=== PATIENT | female | born 1980 | race Caucasian/White ===

== ENCOUNTER 2017-09-12 08:54 | Emergency (ER) | payer OTHER ==
[~2017-09-12 08:54] MED LIST: TAB-TAB PO; Z.0.BCPILL PO
[2017-09-12 08:57] VITALS: BP 150/91; PULSE 89; RESP 16; TEMP 98.2; O2SAT 98
[2017-09-12 09:50] LABS: AUTOMATED NEUTROPHIL # 3.7 TH/MM3 (1.8-7.7); BASOPHIL % 0.5 % (0.0-2.0); EOSINOPHIL % 0.3 % (0.0-4.0); HEMATOCRIT 43.1 % (35.0-46.0); HEMOGLOBIN 14.7 GM/DL (11.6-15.3); LYMPH % 25.7 % (9.0-44.0); LYMPHOCYTE # 1.4 TH/MM3 (1.0-4.8); MEAN CORPUSCULAR HEMOGLOBIN 31.3 PG (27.0-34.0); MEAN PLATELET VOLUME 6.6 FL (7.0-11.0); MONO % 6.2 % (0.0-8.0); MONOCYTE # 0.3 TH/MM3 (0-0.9); NEUT % 67.3 % (16.0-70.0); PLATELET COUNT 329 TH/MM3 (150-450); RED BLOOD COUNT 4.68 MIL/MM3 (4.00-5.30); RED CELL DISTRIBUTION WIDTH 14.8 % (11.6-17.2); WHITE BLOOD COUNT 5.6 TH/MM3 (4.0-11.0)
[2017-09-12 09:51] LABS: BILIRUBIN, URINE NEG (NEG); BLOOD, URINE NEG (NEG); GLUCOSE,URINE NEG (NEG); KETONE, URINE NEG (NEG); NITRITE,URINE NEG (NEG); PH, URINE 7.5 (5.0-8.5); SQUAMOUS EPITHELIAL CELL URINE <1 /hpf (0-5); URINE COLOR LIGHT-YELLOW (YELLW/STRAW); URINE LEUKOCYTE ESTERASE NEG (NEG)
[2017-09-12] MEDS ORDERED: GABA400C5 PO (10:04)
[2017-09-12] MEDS ORDERED: ARIP1TAB15 PO (10:04)
[2017-09-12] MEDS ORDERED: LAMO200T PO (10:04)
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
[2017-09-12 10:13] LABS: BICARBONATE 28.1 MEQ/L (21.0-32.0); CALCIUM 9.2 MG/DL (8.5-10.1); CREATININE 0.95 MG/DL (0.50-1.00)
--- NOTE | 2017-09-12 10:52 | RADRPT ---
EXAM DATE/TIME: 09/12/2017 10:25 [facility] COMPARISON: No previous studies available for comparison. INDICATIONS : Dizziness, involuntary tremors RADIATION DOSE: 56.35 CTDIvol (mGy) MEDICAL HISTORY : Seizures. SURGICAL HISTORY : None. ENCOUNTER: Initial ACUITY: 2 weeks PAIN SCALE: 0/10 LOCATION: cranial TECHNIQUE: Multiple contiguous axial images were obtained of the head. Using automated exposure control and adj ustment of the mA and/or kV according to patient size, radiation dose was kept as low as reasonably a chievable to obtain optimal diagnostic quality images. DICOM format image data is available electro nically for review and comparison. FINDINGS: CEREBRUM: The ventricles are normal for age. No evidence of midline shift, mass lesion, hemorrhage or acute in farction. No extra-axial fluid collections are seen. POSTERIOR FOSSA: The cerebellum and brainstem are intact. The 4th ventricle is midline. The cerebellopontine angle i s unremarkable. EXTRACRANIAL: The visualized portion of the orbits is intact. SKULL: The calvaria is intact. No evidence of skull fracture. CONCLUSION: Normal examination. Mega Velazco MD on September 12, 2017 at 10:47 Board Certified Radiologist. This report was verified electronically.
--- NOTE | 2017-09-12 11:24 | PD ---
Physical Exam Time Seen by Provider: 11:21 Narrative Patient seen initially by Dr. Brown. See his note for history and physical. Data Data Last Documented VS Vital Signs Date Time Temp Pulse Resp B/P (MAP) Pulse Ox O2 Delivery O2 Flow Rate FiO2 09/12/17 08:57 98.2 89 16 150/91 (110) 98 Orders Orders Complete Blood Count With Diff (09/12/17 09:00) Basic Metabolic Panel (Bmp) (09/12/17 09:00) Urinalysis - C+S If Indicated (09/12/17 09:00) Ed Urine Pregnancytest Poc (09/12/17 09:00) Ct Brain W/O Iv Contrast(Rout) (09/12/17 ) Labs Laboratory Tests Test 09/12/17 09:12 09/12/17 09:15 Urine Color LIGHT-YELLOW Urine Turbidity CLEAR Urine pH 7.5 Urine Specific [place] 1.005 Urine Protein NEG mg/dL Urine Glucose (UA) NEG mg/dL Urine Ketones NEG mg/dL Urine Occult Blood NEG Urine Nitrite NEG Urine Bilirubin NEG Urine Urobilinogen LESS THAN 2.0 MG/DL Urine Leukocyte Esterase NEG Urine RBC LESS THAN 1 /hpf Urine WBC LESS THAN 1 /hpf Urine Squamous Epithelial Cells <1 /hpf Microscopic Urinalysis Comment CULT NOT INDICATED White Blood Count 5.6 TH/MM3 Red Blood Count 4.68 MIL/MM3 Hemoglobin 14.7 GM/DL Hematocrit 43.1 % Mean Corpuscular Volume 92.0 FL Mean Corpuscular Hemoglobin 31.3 PG Mean Corpuscular Hemoglobin Concent 34.0 % Red Cell Distribution Width 14.8 % Platelet Count 329 TH/MM3 Mean Platelet Volume 6.6 FL Neutrophils (%) (Auto) 67.3 % Lymphocytes (%) (Auto) 25.7 % Monocytes (%) (Auto) 6.2 % Eosinophils (%) (Auto) 0.3 % Basophils (%) (Auto) 0.5 % Neutrophils # (Auto) 3.7 TH/MM3 Lymphocytes # (Auto) 1.4 TH/MM3 Monocytes # (Auto) 0.3 TH/MM3 Eosinophils # (Auto) 0.0 TH/MM3 Basophils # (Auto) 0.0 TH/MM3 CBC Comment DIFF FINAL Differential Comment Blood Urea Nitrogen 10 MG/DL Creatinine 0.95 MG/DL Random Glucose 83 MG/DL Calcium Level 9.2 MG/DL Sodium Level 141 MEQ/L Potassium Level 4.0 MEQ/L Chloride Level 104 MEQ/L Carbon Dioxide Level 28.1 MEQ/L Anion Gap 9 MEQ/L Estimat Glomerular Filtration Rate 67 ML/MIN [facility] Supervised Visit with RONDA: Yes Narrative Course Patient seen initially by Dr. Brown. See his note for history and physical. CBC , BMP, urinalysis unremarkable. CT head with no acute findings. Lab and radiology findings discussed with patient. Instructed patient to follow-up with neurologist. Instructed patient to follow up with primary care provider. Patient verbalizes understanding and agreement with treatment plan. Patient is medically cleared and stable for discharge. Discussed reasons to return to the emergency department. Patient agrees with treatment plan. The patients vital signs are stable and the patient is stable for outpatient follow-up and treatment. Patient discharged home, stable and in no acute distress. Diagnosis Primary Impression: Tremor of right hand Referrals: Neurologist Primary Care Physician Patient Instructions: General Instructions, Tremors (ED) Additional Instruction: Follow-up with primary care provider Follow-up with neurologist Return to the emergency department immediately with worsening of symptoms Med/Other Pt SpecificInfo: No Change to Meds, No Meds Exist/No RX given Disposition: DISCHARGE HOME Condition: Stable Franchesca Ferguson Sep 12, 2017 11:24
== END 2017-09-12 12:19 | disposition home or self-care (01) ==
LOC: NEPD 08:54
DX: R25.1 Tremor, unspecified (principal); H53.2 Diplopia
CPT/HCPCS: 70450; 80048; 81001; 84703; 85025; 99284

== ENCOUNTER 2017-10-06 10:02 | Emergency (ER) | payer OTHER ==
[~2017-10-06] VITALS: Ht 154.9 cm; Wt 66.0 kg
[~2017-10-06 10:02] MED LIST changes: +ARIP1TAB15 PO; +GABA400C5 PO; +LAMO200T PO; -TAB-TAB PO; -Z.0.BCPILL PO
[2017-10-06 10:11] VITALS: BP 151/100; PULSE 111; RESP 20; TEMP 99.7; O2SAT 97
--- NOTE | 2017-10-06 10:35 | PD ---
HPI Chief Complaint: Shaking Time Seen by Provider: 10:19 Travel History International Travel<30 days: No Contact w/Intl Traveler<30days: No Traveled to known affect area: No History of Present Illness HPI 37yo F with PMH of bipolar disorder on lamictal here with c/o shaking in right upper and bilateral lower extremity today. Said the right leg is shaking more than the left. Pt has been having multiple episodes like this for last week. Pt 's shaking improves after she tires out. It also improves with movement. Pt denies any fall, head trauma today, chest pain, sob, n/v, abdominal pain, focal weakness or numbness. Pt was seen here for right hand tremor on 09/12/17 and impression is more anxiety. Labs were negative and pt had negative CT brain. Pt said she has not follow up with neurology yet. At no point did pt lose consciousness. PFSH Past Medical History Bipolar Disorder: Yes Anxiety: Yes Depression: Yes Seizures: Yes (2010 2012 simple partial seizures) ?: Not LMP: 09/20/17 Past Surgical History Other Surgery: Yes (LASIX) Social History Alcohol Use: Yes Tobacco Use: No Substance Use: No Allergies-Medications (Allergen,Severity, Reaction): Coded Allergies: No Known Allergies (Verified Adverse Reaction, Unknown, 09/12/17) Reported Meds & Prescriptions Reported Meds & Active Scripts Active Reported Gabapentin 400 Mg Cap 200 Cap PO BID Aripiprazole 30 Mg Tab 30 Mg PO DAILY Lamotrigine 200 Mg Tab 200 Mg PO BID Review of Systems Except as stated in HPI: all other systems reviewed are Neg Physical Exam Narrative GENERAL: 37yo F in mild distress. SKIN: Focused skin assessment warm/dry. HEAD: Atraumatic. Normocephalic. EYES: Pupils equal and round. No scleral icterus. No injection or drainage. ENT: No nasal bleeding or discharge. Mucous membranes pink and moist. NECK: Trachea midline. No JVD. CARDIOVASCULAR: Regular rate and rhythm. No murmur appreciated. RESPIRATORY: No accessory muscle use. Clear to auscultation. Breath sounds equal bilaterally. GASTROINTESTINAL: Abdomen soft, non-tender, nondistended. Hepatic and splenic margins not palpable. MUSCULOSKELETAL: No obvious deformities. No clubbing. No cyanosis. No edema. NEUROLOGICAL: Awake and alert. No obvious cranial nerve deficits. Purposeful shaking of right upper and bilateral lower extremity. Muscle strength 5/5 in all extremities. Sensation equal. Shaking improves with movement. Data Data Last Documented VS Vital Signs Date Time Temp Pulse Resp B/P (MAP) Pulse Ox O2 Delivery O2 Flow Rate FiO2 10/06/17 10:11 99.7 111 20 151/100 (117) 97 Orders Orders Complete Blood Count With Diff (10/06/17 10:29) Basic Metabolic Panel (Bmp) (10/06/17 10:29) Magnesium (Mg) (10/06/17 10:29) Lamictal (Lamotrigine) (10/06/17 10:29) Labs Laboratory Tests Test 10/06/17 10:30 10/06/17 11:35 White Blood Count 8.4 TH/MM3 Red Blood Count 4.51 MIL/MM3 Hemoglobin 14.2 GM/DL Hematocrit 41.3 % Mean Corpuscular Volume 91.6 FL Mean Corpuscular Hemoglobin 31.6 PG Mean Corpuscular Hemoglobin Concent 34.5 % Red Cell Distribution Width 14.0 % Platelet Count 335 TH/MM3 Mean Platelet Volume 6.4 FL Neutrophils (%) (Auto) 73.4 % Lymphocytes (%) (Auto) 19.4 % Monocytes (%) (Auto) 6.5 % Eosinophils (%) (Auto) 0.4 % Basophils (%) (Auto) 0.3 % Neutrophils # (Auto) 6.2 TH/MM3 Lymphocytes # (Auto) 1.6 TH/MM3 Monocytes # (Auto) 0.5 TH/MM3 Eosinophils # (Auto) 0.0 TH/MM3 Basophils # (Auto) 0.0 TH/MM3 CBC Comment DIFF FINAL Differential Comment Blood Urea Nitrogen 11 MG/DL Creatinine 0.77 MG/DL Random Glucose 83 MG/DL Calcium Level 8.2 MG/DL Magnesium Level 1.9 MG/DL Sodium Level 139 MEQ/L Potassium Level 3.7 MEQ/L Chloride Level 108 MEQ/L Carbon Dioxide Level 24.5 MEQ/L Anion Gap 7 MEQ/L Estimat Glomerular Filtration Rate 85 ML/MIN [facility] Medical Decision Making Medical Screen Exam Complete: Yes Emergency Medical Condition: Yes Differential Diagnosis Anxiety vs. bipolar disorder vs. electrolyte abnormality vs. pseudoseizure Narrative Course 37yo F with bipolar disorder here with shaking that seems voluntary and stops voluntarily. Labs reviewed, no leukocytosis. H/H normal. Magnesium normal. BMP unremarkable. Lamotrigine level is still pending but pt has no recent changes in medication so will not change it. Pt has been observed in the ED and shaking has spontaneously resolved. Pt instructed to follow up with neurology. Diagnosis Primary Impression: Episode of shaking Referrals: Susy Juares MD as needed Patient Instructions: General Instructions Departure Forms: Tests/Procedures Additional Instructions: Please follow up with neurology as needed. Return to the ED if symptoms worsen. Med/Other Pt SpecificInfo: No Change to Meds Disposition: 01 DISCHARGE HOME Condition: Stable Chiara Justiceapolinar HERNANDEZ Oct 06, 2017 10:35
[2017-10-06 11:02] LABS: AUTOMATED NEUTROPHIL # 6.2 TH/MM3 (1.8-7.7); BASOPHIL % 0.3 % (0.0-2.0); EOSINOPHIL % 0.4 % (0.0-4.0); HEMATOCRIT 41.3 % (35.0-46.0); HEMOGLOBIN 14.2 GM/DL (11.6-15.3); LYMPH % 19.4 % (9.0-44.0); LYMPHOCYTE # 1.6 TH/MM3 (1.0-4.8); MEAN CELL VOLUME 91.6 FL (80.0-100.0); MEAN CORPUSCULAR HEMOGLOBIN 31.6 PG (27.0-34.0); MEAN CORPUSCULAR HGB CONC 34.5 % (32.0-36.0); MEAN PLATELET VOLUME 6.4 FL (7.0-11.0); MONO % 6.5 % (0.0-8.0); MONOCYTE # 0.5 TH/MM3 (0-0.9); NEUT % 73.4 % (16.0-70.0); PLATELET COUNT 335 TH/MM3 (150-450); RED BLOOD COUNT 4.51 MIL/MM3 (4.00-5.30); WHITE BLOOD COUNT 8.4 TH/MM3 (4.0-11.0)
[2017-10-06 11:33] LABS: BICARBONATE 24.5 MEQ/L (21.0-32.0); CALCIUM 8.2 MG/DL (8.5-10.1); CREATININE 0.77 MG/DL (0.50-1.00); MAGNESIUM 1.9 MG/DL (1.5-2.5)
[2017-10-06 13:56] VITALS: BP 118/63; PULSE 75; RESP 18; O2SAT 98
== END 2017-10-06 14:07 | disposition home or self-care (01) ==
LOC: NEPC 10:02
DX: R25.1 Tremor, unspecified (principal); F31.9 Bipolar disorder, unspecified; F41.9 Anxiety disorder, unspecified; Z79.899 Other long term (current) drug therapy
CPT/HCPCS: 80048; 80175; 83735; 85025; 99283